=== PATIENT | male | born 1990 ===

== ENCOUNTER 2020-10-25 15:56 | Outpatient (REF) | payer OTHER, SELFPAY ==
[2020-10-25 16:20] LABS: MANUAL DIFF FLAG NO
[2020-10-25 16:25] LABS: Basophils Percent Auto 0.2 % (0-2); Eosinophils Absolute Auto 0.1 X10*3/uL (0.0-0.4); Eosinophils Percent Auto 0.9 % (0-4); Hematocrit 43.9 % (42-52); Hemoglobin 14.7 g/dl (14.0-18.0); Imm Gran Abs Auto 0.03 X10*3/uL (0.00-0.03); Imm Gran Pct Auto 0.3 % (0.0-0.4); Lymphocytes Absolute Auto 1.2 X10*3/uL (1.2-4.9); Lymphocytes Percent Auto 11.6 % (20-40); Mean Corpuscular HGB Conc 33.5 g/dl (31.0-36.0); Mean Corpuscular Hemoglobin 29.9 pg (27.0-33.0); Mean Corpuscular Volume 89.4 fL (80-98); Monocytes Absolute Auto 0.7 X10*3/uL (0.1-1.2); Monocytes Percent Auto 6.8 % (2-11); Neutrophils Absolute Auto 8.3 X10*3/uL (2.0-8.3); Neutrophils Percent Auto 80.2 % (45-73); Platelet Count 211 X10*3/uL (160-400); Red Blood Count 4.91 X10*6/uL (4.60-5.80); Red Cell Distribution Width 12.6 % (11.0-16.0); White Blood Count 10.4 X10*3/uL (4.8-10.8)
[2020-10-25 16:55] LABS: Alanine Aminotransferase 36 U/L (0-40); Albumin Level 4.4 g/dL (3.5-5.0); Alkaline Phosphatase 68 U/L (39-117); Anion Gap 10 (12-20); Aspartate Amino Transferase 24 U/L (5-37); Bilirubin Total 0.3 mg/dL (0.0-1.0); Blood Urea Nitrogen 12 mg/dL (9-16); Calcium 9.1 mg/dL (8.4-10.2); Carbon Dioxide 29 mmol/L (22-29); Chloride 103 mmol/L (96-108); Cholesterol 173 mg/dL; Estimated Glomerular Filt Rate > 60; Glucose Random 104 mg/dL (60-115); Potassium 4.2 mmol/L (3.3-5.1); Sodium 138 mmol/L (135-145); Total Protein 7.3 g/dL (6.5-8.0)
[2020-10-25 17:15] LABS: Thyroid Stimulating Hormone 1.04 uIU/mL (0.32-4.0)
[2020-10-25 18:35] LABS: Glucose Urine UA NEG (NEG); Leukocyte Esterase Urine NEG (NEG); Nitrite Urine NEG (NEG); Urine Blood NEG (NEG); Urine Ketones NEG (NEG); Urine Protein NEG (NEG-TRACE)
[2020-10-25 18:41] LABS: Appearance Urine CLEAR; Color Urine YELLOW
[2020-10-25 18:48] LABS: Creatinine Urine 91.48 mg/dL; Microalbumin Urine < 5.0 mg/L
[2020-10-26 03:33] LABS: Estimated Average Glucose 97 mg/dL
== END 2020-10-25 15:57 | disposition home or self-care (01) ==
LOC: HO.LAB 15:56
PROVIDERS: PCP Internal Medicine; Visit Provider Internal Medicine
DX: R63.5 Abnormal weight gain (principal); R53.83 Other fatigue; R35.8 Other polyuria; R80.9 Proteinuria, unspecified; Z83.3 Family history of diabetes mellitus
CPT/HCPCS: 36415; 80053; 81003; 82043; 82465; 83036; 84443; 85025

== ENCOUNTER 2024-02-29 16:43 | Emergency (ER) | payer OTHER, SELFPAY ==
--- NOTE | ~2024-02-29 | XR_ITS ---
EXAMINATION: XR HAND, LEFT CLINICAL INFORMATION: Pain, injury. COMPARISON: None available. TECHNIQUE: PA, lateral, and oblique views of the left hand. FINDINGS: Possible, very subtle nondisplaced fracture of the mid fourth metacarpal. No dislocation. No unexpected radiopaque foreign bodies. XR/XR hand LT min 3V IMPRESSION: Possible subtle nondisplaced fracture of the mid fourth metacarpal. Correlate for point tenderness.
[2024-02-29 16:55] VITALS: BP 128/74; PULSE 79; RESP 18; TEMP 36.3; O2SAT 96; BMI 43.9
--- NOTE | 2024-02-29 16:59 | ED.GENADULT ---
HPI - General Adult General Chief complaint: Extremity Injury, Upper Stated complaint: left hand inj Time Seen by Provider: 02/29/24 18:27 Source: patient, RN notes reviewed and old records reviewed Mode of arrival: ambulatory Limitations: no limitations History of Present Illness ED Provider: Willie GARCIA narrative: 33-year-old male presents for evaluation of left hand pain. Patient reports that he tripped while getting out of his car yesterday The patient describes falling on an outstretched hand. He has been complaining of pain to his left hand ever since. His pain is 8/10 He denies any wrist pain. He is able to move all his fingers It did not hit his hand or lose consciousness Related Data Previous Rx's ?Medication ?Instructions ?Recorded oxycodone 5 mg tablet 5 mg PO Q6H PRN severe pain (scale 02/29/24 score 7-10) #12 tabs Allergies Allergy/AdvReac Type Severity Reaction Status Date / Time No Known Allergies Allergy Verified 02/29/24 17:00 Review of Systems Constitutional: Constitutional: Denies frequent falls and Denies headache(s) ENT: Denies headache(s) Cardiovascular: Cardiovascular: Denies syncope Musculoskeletal: Musculoskeletal: Reports arthralgias Neurologic: Denies syncope, Denies frequent falls and Denies headache(s) PMFSH Social History Social History Advance Directives: No Advance Directives Information Provided: No Do you have a plan to hurt others: No Plan Physical Exam ED Vital Signs: Vital Signs - 24 hr 02/29/24 16:55 Temperature 97.4 F Pulse Rate 79 Respiratory Rate 18 Blood Pressure 128/74 Pulse Oximetry 96 Oxygen Delivery Method Room Air BMI result Body Mass Index 43.9 Const General: healthy appearing, comfortable, no acute distress, alert and awake Nutritional Appearance: well nourished Orientation/consciousness: patient oriented x3 HENMT Head: Yes normocephalic and Yes atraumatic Eyes Eyelids: Yes eyelids normal Conjunctivae: conjunctivae normal Sclerae: sclerae normal Corneas: corneas normal Pupils: Equal, round and reactive pupils present EOM: EOMs intact bilaterally Neck Neck: Yes full ROM Resp Effort & Inspection: normal respiratory effort, able to speak in complete sentences and not labored Skin General skin exam: elasticity normal Neuro General: patient oriented x3 Cranial nerves: Yes Equal, round and reactive pupils present and Yes Bilaterally intact EOM present Cognition (Neuro): normal cognition Extrem Other: Mild soft tissue edema overlying the left 4th metacarpal. This area is exquisitely tender to palpation. There is no tenderness of the left wrist including the scaphoid Course Course Course Narrative: RME performed by Ting Glover PA-C. Patient is a 33 year old assigned male at presenting to the emergency department with left hand pain. Patient states he fell, landing on and injuring his left hand. Detailed physical exam and review of systems are deferred to the engineering and scientific programmer. Imaging ordered. Patient placed back in the waiting room pending room availability and results. Procedures Orthopedic Splinting/Casting Injury #1: Side: left Upper Extremity Injury Location: hand Upper Extremity Immobilizer: ulnar gutter Additional Comments: Neurovascular status intact postprocedure Medical Decision Making Medical Decision Making MDM Narrative: 33-year-old healthy male presents for evaluation of left hand pain after a fall. He is x-ray shows a suspected fracture at the left 4th metacarpal. Clinically this is an acute fracture as this is the exact area with the patient has most exquisite tenderness. Patient placed in an ulnar gutter splint and will follow-up with hand surgery Differential Diagnosis Differential Diagnoses: The differential diagnosis associated with the presentation includes Hand fracture Fall on outstretched hand Wrist sprain Hand sprain Contusion Independent Interpretation I performed an independent interpretation of an: Plain X-Ray Interpretation: Acute nondisplaced fracture of the left 4th metacarpal Radiology Impression Discussion of test interpretation with radiology: I have reviewed the radiologist's reading. Radiologist Impression: XR/XR hand LT min 3V IMPRESSION: Possible subtle nondisplaced fracture of the mid fourth metacarpal. Correlate for point tenderness. Discharge Plan Discharge Clinical Impression: Fracture of fourth metacarpal bone of left hand Patient Disposition: Home, Self-Care Instructions: Hand Fracture (ED) Additional Instructions: You have a fracture of a bone in her left hand You were placed in a splint called an ulnar gutter splint Keep this on until you follow-up with orthopedics Call the number provided tomorrow to schedule your appointment Use Motrin/Tylenol for pain and you may use oxycodone for more severe, breakthrough pain Oxycodone may make you drowsy, do not drink alcohol or drive after taking Prescriptions: New oxycodone 5 mg tablet 5 mg PO Q6H PRN (Reason: severe pain (scale score 7-10)) Qty: 12 0RF Rx Instructions: Partial Fill upon patient request. Referrals: Lisa Barnett MD [Physician] - (left 4th metacarpal fracture) Print Language: Hungarian
[2024-02-29] MEDS: oxyCODONE HCl Immed Release 5 MG TABLET PO (19:05)
[2024-02-29 19:07] VITALS: BP 128/74; PULSE 79; RESP 18; TEMP 36.3; O2SAT 96
== END 2024-02-29 19:08 | disposition home or self-care (01) ==
PROVIDERS: Emergency Provider Emergency Medicine
DX: S62.305A Unspecified fracture of fourth metacarpal bone, left hand, initial encounter for closed fracture (principal); M79.642 Pain in left hand; W01.0XXA Fall on same level from slipping, tripping and stumbling without subsequent striking against object, initial encounter; Y93.9 Activity, unspecified; Y92.810 Car as the place of occurrence of the external cause; Y99.8 Other external cause status
CPT/HCPCS: 29125; 73130; 99283; 99284

== ENCOUNTER 2024-03-09 13:04 | Outpatient (REF) | payer OTHER, SELFPAY ==
--- NOTE | ~2024-03-09 | XR_ITS ---
EXAMINATION: XR HAND, LEFT CLINICAL INFORMATION: Left hand pain. COMPARISON: 02/29/2024 TECHNIQUE: PA, lateral, and oblique views of the left hand. FINDINGS: Again seen is a spiral fracture of the ring finger metacarpal shaft with slight apex dorsal angulation of the fracture site. No articular extension. Alignment is unchanged. No additional fractures. Joint spaces are well-preserved. No erosions. XR/XR hand LT min 3V IMPRESSION: Unchanged alignment of the spiral fracture of the ring finger metacarpal shaft. Electronically signed by: Winston Adams MD 04/01/2024 10:07 PM EDT
== END 2024-03-09 13:05 | disposition home or self-care (01) ==
LOC: HO.HOSX 13:04
PROVIDERS: Visit Provider Orthopaedic Surgery
DX: M79.642 Pain in left hand (principal); S62.325A Displaced fracture of shaft of fourth metacarpal bone, left hand, initial encounter for closed fracture
CPT/HCPCS: 73130; 99202

== ENCOUNTER 2024-03-09 13:04 | Outpatient (AMB) | payer OTHER, SELFPAY ==
[2024-03-09 13:45] VITALS: BMI 43.9
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
== END 2024-03-09 14:37 | disposition home or self-care (01) ==
LOC: HO.HOS 13:04
PROVIDERS: Visit Provider Orthopaedic Surgery
DX: S62.325A Displaced fracture of shaft of fourth metacarpal bone, left hand, initial encounter for closed fracture (principal)
CPT/HCPCS: 99203

== ENCOUNTER 2024-05-03 14:00 | Outpatient (REF) | payer OTHER, SELFPAY ==
--- NOTE | ~2024-05-03 | XR_ITS ---
EXAMINATION: XR HAND LEFT 3 VIEWS CLINICAL INFORMATION: Pain in left hand M79.642. COMPARISON: XR Left hand 03/09/2024 TECHNIQUE: PA, lateral, and oblique views of the left hand. FINDINGS: There is callus summation crossing the area of the fracture through the diaphyseal portion of the 4th metacarpal. No change in alignment. Remaining bones joints and soft tissues unremarkable. XR/XR hand LT min 3V IMPRESSION: Healing 4th metacarpal fracture. Electronically signed by: Malvin Loernzana MD 07/05/2024 10:09 AM PARAMJIT LANDRES
== END 2024-05-03 14:01 | disposition home or self-care (01) ==
LOC: HO.HOSX 14:00
PROVIDERS: Visit Provider Orthopaedic Surgery
DX: M79.642 Pain in left hand (principal); S62.325D Displaced fracture of shaft of fourth metacarpal bone, left hand, subsequent encounter for fracture with routine healing; W19.XXXD Unspecified fall, subsequent encounter
CPT/HCPCS: 73130; 99212

== ENCOUNTER 2024-05-03 15:16 | Outpatient (AMB) | payer OTHER, SELFPAY ==
--- NOTE | 2024-05-03 15:24 | A.OFFVIS_ITS ---
Vital Signs 05/03/24 15:27 Height 5 ft 6 in Weight 300 lb BMI 48.4 Handedness Right Intake Visit Reasons: OV- Fx of fourth metacarpal bone of left hand Intake Note: Baljinder is a 33 year old right hand dominant male who presents today for ROM check s/p left fourth metacarpal bone fracture, DOI 03/04/24. Patient reports his ROM has improved, he is able to make a full tight closed fist. Denies numbness, tingling or pain. He has concern that his knuckle is pushing into his hand since he has a lump on the dorsal aspect of the left hand. Allergies No Known Allergies Allergy (Verified 05/03/24 15:27) HPI HPI OV- Fx of fourth metacarpal bone of left hand: Details: Baljinder is a 33 year old right hand dominant man who presents for a left hand fracture, S/P fall, DOI: 02/28/24 while at work. He says he is doing well overall, and is able to make a fist without pain. He denies any numbness, tingling, locking, or catching. 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 He is planning a vacation in 2 months and would like to avoid a cast or surgery. He denies smoking but says he vapes. [facility] Social History (Updated 05/03/24 @ 15:29 by FRANCE Lion) Alcohol intake: current Alcohol intake frequency: a few times a month e-Cigarette/Vaping Use: Currently Using Frequency of e-Cigarette/Vaping Use: everyday Current occupational status: employed Current occupation: rt handed, teacher Physical Exam Vital Signs: BMI result Body Mass Index 48.4 Extrem Other: Evaluation of Left Upper Extremity: The patient is alert, oriented, and in no acute distress Neuro: Median, Ulnar, Radial nerves motor and sensory intact and sensation is normal to the tips of all digits Vascular: Cap refill brisk ROM: He can make a fist and extend all his digits without pain No rotational mal-alignment No locking or catching Mild shortening of the 4th metacarpal No tenderness at the fracture site Radiographs: 3 views of the left hand were taken and viewed by me today in clinic. They show a 4th metacarpal spiral oblique shaft fracture, with satisfactory fracture alignment and good evidence of interval bony healing Assessment & Plan Assessment & Plan (1) Fracture of shaft of fourth metacarpal bone of left hand: Code(s): S62.325A - Displaced fracture of shaft of fourth metacarpal bone, left hand, initial encounter for closed fracture Category: Medical Plan Assessment & Plan: 1. Left 4th metacarpal spiral oblique shaft fracture, minimally displaced S/P fall, DOI: 02/28/24 This is a work-related injury I educated him about this condition He is doing well and denies any pain He will discontinue his splint & Polo-taping at this time I discussed activity modifications, he is to slowly increase his weight limits as tolerated, but is able to engage in all daily activities He should avoid any heavy impact activities for the next few weeks, such as chopping wood He will follow up prn Scribed for Lisa Barnett MD by Stevenson Newby, medical records library professor, on 05/03/24 at 3:50 PM, EST. Orders: Orders XR hand LT min 3V Today M79.642 - Pain in left hand Coding Level of Care Code Global (20901) Diagnoses Fracture of shaft of fourth metacarpal bone of left hand S62.325A
[2024-05-03 15:27] VITALS: BMI 48.4
== END 2024-05-03 15:55 | disposition home or self-care (01) ==
PROVIDERS: Visit Provider Orthopaedic Surgery
DX: S62.325A Displaced fracture of shaft of fourth metacarpal bone, left hand, initial encounter for closed fracture (principal)
CPT/HCPCS: 99213

== ENCOUNTER 2024-05-10 05:16 | Emergency (ER) | payer SELFPAY ==
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
[2024-05-10 05:23] VITALS: BP 140/86; PULSE 65; O2SAT 98
[2024-05-10 05:24] VITALS: BP 129/74; PULSE 62; RESP 18; TEMP 36.6; O2SAT 95; BMI 44.1
[2024-05-10 06:00] VITALS: TEMP 36.4
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
[2024-05-10 08:00] VITALS: BP 111/56; PULSE 66; RESP 16; TEMP 36.4; O2SAT 97
[2024-05-10] MEDS: Ibuprofen 800 MG TABLET PO (09:35)
[2024-05-10 10:23] VITALS: BP 111/56; PULSE 66; RESP 16; TEMP 36.4; O2SAT 97
== END 2024-05-10 10:24 | disposition home or self-care (01) ==
PROVIDERS: Emergency Provider Emergency Medicine
DX: S10.93XA Contusion of unspecified part of neck, initial encounter (principal); S80.811A Abrasion, right lower leg, initial encounter; R51.9 Headache, unspecified; M79.601 Pain in right arm; M54.2 Cervicalgia; V43.52XA Car driver injured in collision with other type car in traffic accident, initial encounter; Y93.89 Activity, other specified; Y92.488 Other paved roadways as the place of occurrence of the external cause; Y99.8 Other external cause status
CPT/HCPCS: 70450; 72125; 73090; 73590; 99284